=== PATIENT | female | born 2000 | race Two or more races ===

== ENCOUNTER 2020-07-10 09:11 | Emergency (ER) | payer MEDICAID, OTHER ==
[~2020-07-10] VITALS: Ht 160 cm; Wt 45.4 kg
[2020-07-10 09:31] VITALS: BP 118/83
[2020-07-10] MEDS ORDERED: LIDOCAINE 1% HCL (LOCAL ANESTH.) INJ 20ML MDV IJ ONE (11:15)
[2020-07-10] MEDS ORDERED: KETOROLAC TROMETH 30 MG/ML 1ML VIAL IV ONE (11:30)
[2020-07-10] MEDS ORDERED: BACITRACIN TOP OINT 1 UD PKG TOP ONE ×2 (12:43→12:45)
== END 2020-07-10 12:55 | disposition home or self-care (01) ==
LOC: EDBD 09:11 → ER 09:11
DX: S61.512A Laceration without foreign body of left wrist, initial encounter (principal); V49.9XXA Car occupant (driver) (passenger) injured in unspecified traffic accident, initial encounter; Y93.89 Activity, other specified; Y92.89 Other specified places as the place of occurrence of the external cause; Y99.8 Other external cause status
CPT/HCPCS: 12001; 70450; 72040; 73110; 96374; 99284; J1885; J2001

== ENCOUNTER 2022-12-18 23:17 | Emergency (ER) | payer MEDICAID, OTHER ==
[~2022-12-18] VITALS: Ht 160 cm; Wt 65.0 kg
[2022-12-18] MEDS ORDERED: fentaNYL CITRATE 100 MCG/2 ML VL IV ONE (23:30)
[2022-12-18] MEDS ORDERED: BETAMETHASONE ACET (30mg/5ml) 5ml Vial 6mg/ml IM ONE (23:30)
[2022-12-18] MEDS ORDERED: ONDANSETRON HCL 4 MG/2 ML VIAL IV ONE (23:30)
[2022-12-18 23:52] LABS: Basophils # (auto) 0.1 10 ^3/uL (0-0.2); Basophils % (auto) 0.4 % (0.0-2.0); Eosinophils # (auto) 0.2 10 ^3/uL (0-0.8); Eosinophils % (auto) 1.2 % (0.0-7.0); Hematocrit 30.4 % (36.0-46.0); Hemoglobin 10.3 g/dL (12.2-16.2); Lymphocytes # (auto) 3.2 10 ^3/uL (0.4-5.4); Lymphocytes % (auto) 23.9 % (10.0-50.0); Mean Corpuscular Hemoglobin 30.4 pg (28.0-32.0); Mean Corpuscular Hgb Conc. 33.8 g/dL (32.0-36.0); Monocytes # (auto) 0.6 10 ^3/uL (0-1.3); Monocytes % (auto) 4.3 % (0.0-12.0); Neutrophils # (auto) 9.3 10 ^3/uL (1.6-8.6); Neutrophils % (auto) 70.2 % (37.0-80.0); Nucleated Red Blood Cells % 0.1 %; Red Blood Cells 3.38 10^6/uL (4.0-5.20); Red Cell Distribution Width 13.6 % (11.8-14.3); White Blood Cell 13.3 10^3/uL (4.4-10.8)
[2022-12-19 00:07] LABS: INR 0.89 (0.9-1.15); Partial Thromboplastin Time 25.1 sec (24.6-33.4)
[2022-12-19 00:09] LABS: Albumin 2.6 g/dL (3.4-5.0); Calcium 8.4 mg/dL (8.5-10.1); Potassium 3.3 mmol/L (3.5-5.1)
[2022-12-19 00:12] LABS: BUN/Creatinine Ratio 12.9 (10.0-20.0)
[2022-12-19 00:15] LABS: Bilirubin, Total 0.2 mg/dL (0.2-1.0); Total Protein 6.5 g/dL (6.4-8.2)
[2022-12-19] MEDS ORDERED: LACTATED RINGER'S 1,000 ML IV ONE (00:30)
[2022-12-19] MEDS ORDERED: TETANUS-DIPTH-ACEL PERTUSSIS 0.5ML SYR Tdap IM ONE (00:30)
[2022-12-19] MEDS ORDERED: ceFAZolin 2 GM/D5W100ml 100 ML IV ONE (00:30)
[2022-12-19] MEDS ORDERED: ceFAZolin 1GM/50ML 50 ML IV ONE ×2 (00:45)
[2022-12-19] MEDS ORDERED: TERBUTALINE SULFATE 1 MG/ML 1ML VIAL SC ONE ×2 (01:22→01:30)
[2022-12-19] MEDS ORDERED: LIDOCAINE 1% HCL (LOCAL ANESTH.) INJ 20ML MDV ONE (01:39)
[2022-12-19 01:58] VITALS: BP 111/61
[2022-12-19] MEDS ORDERED: LIDOCAINE 1% HCL (LOCAL ANESTH.) INJ 20ML MDV IJ ONE (12:55)
== END 2022-12-19 02:19 | disposition short-term general hospital (02) ==
LOC: EDBD 23:17 → ER 23:17 → EEVIPCON 23:17 → ER 12-19 02:10
DX: O99.513 Diseases of the respiratory system complicating pregnancy, third trimester (principal); O26.891 Other specified pregnancy related conditions, first trimester; S21.119A Laceration without foreign body of unspecified front wall of thorax without penetration into thoracic cavity, initial encounter; R10.2 Pelvic and perineal pain; J93.83 Other pneumothorax; J94.2 Hemothorax; Z3A.34 34 weeks gestation of pregnancy; W26.0XXA Contact with knife, initial encounter; Y93.89 Activity, other specified; Y92.89 Other specified places as the place of occurrence of the external cause; Y99.8 Other external cause status
CPT/HCPCS: 32551; 36415; 71045; 76805; 76815; 76818; 80053; 84702; 85025; 85610; 85730; 86850; 86900; 86901; 96365; 96372; 96375; 99291; J0690; J0702; J2001; J2405; J3010; J3105; 90715